=== PATIENT | male | born 1995 | race Caucasian/White ===

== ENCOUNTER → 2021-10-19 16:08 | Outpatient (CLI) | payer OTHER, SELFPAY ==
--- NOTE | ~2021-10-19 | XR_ITS ---
EXAM: XR foot RT min 3V HISTORY: M79.671 - Pain in right foot COMPARISON: None available FINDINGS: Normal mineralization. Minimally distracted transverse fracture of the fifth metatarsal ba se, 1.5 cm from the tip of the fifth metatarsal tuberosity, not involving the intermetatarsal joint l ine. No lytic or blastic lesion. Joint spaces maintained. No erosion or periosteal change. Soft tissu es within normal limits. IMPRESSION: Fifth metatarsal base avulsion fracture (pseudo-Griffith fracture).r Reviewed, dictated and finalized at location K. IMPRESSION: Fifth metatarsal base avulsion fracture (pseudo-Griffith fracture).saulo
== END ==
PROVIDERS: PCP Family Medicine; Visit Provider Physician Assistant
DX: S92.351A Displaced fracture of fifth metatarsal bone, right foot, initial encounter for closed fracture (principal); X58.XXXA Exposure to other specified factors, initial encounter
CPT/HCPCS: 73630

== ENCOUNTER 2022-04-29 01:44 | Day surgery (SDC) | payer BC, SELFPAY ==
[2022-04-16 14:28] VITALS: BMI 22.5
--- NOTE | 2022-04-28 14:32 | P.HP_ITS ---
History of Present Illness History of Present Illness Consent: Risks, benefits, and alternatives have been discussed and questions answered. Patient agrees to proceed with procedure. Chief complaint: abdominal pain, nausea Narrative: Cy Pettit is a 26 year old male who reports that since around 7 weeks ago he has been having a burning discomfort in his upper abdomen and points to his epigastric region that comes and goes.? It will get worse with alcohol and has cut back on that. He also says it can worsen with physical activity. ? He also reports intermittent nausea throughout the day that has been going on greater than 3 weeks-no vomiting.? Eating does not improve the symptoms or worsen. He denies any typical reflux symptoms.? Denies any dysphagia or odynophagia.? Denies any abnormal weight loss. About 12 years ago he had endoscopy and colonoscopy at [facility] in [place] to investigate diarrhea and those studies apparently were unremarkable. 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 [employer] Gender identity (if verbalized by the patient): Male Sexual Orientation (if Verbalized by the Patient): Straight or Heterosexual Spiritual care concerns: No Meds Home Medications and Allergies Home Medications Medication Instructions Recorded Confirmed Type eluxadoline 100 mg tablet (Viberzi) 100 mg PO BID #180 tabs 11/12/21 04/29/22 Rx omeprazole 40 mg capsule,delayed 40 mg PO DAILY #30 caps 03/23/22 04/29/22 Rx release loratadine 10 mg tablet (Claritin) 10 mg PO DAILY 04/16/22 04/29/22 History Allergies Allergy/AdvReac Type Severity Reaction Status Date / Time No Known Allergies Allergy Verified 04/29/22 08:12 Exam Const: General: alert Orientation/consciousness: patient oriented x3 Resp: Auscultation: clear to auscultation bilaterally Cardio: Rhythm: regular rhythm GI: GI Palp: Yes Soft to palpation and No Tenderness to palpation present (GI) Neuro: General: patient oriented x3 Assessment and Plan Assessment and plan (1) Epigastric pain: Code(s): R10.13 - Epigastric pain Status: Acute Assessment and Plan: EGD with possible biopsy or dilatation or cautery.
[2022-04-29 08:14] VITALS: BP 128/65; PULSE 70; RESP 16; TEMP 36; O2SAT 99; BMI 22.4
[2022-04-29] MEDS: LACTATED RINGERS 1,000 ML 150 ML IV CONT (08:21)
--- NOTE | 2022-04-29 08:32 | P.PNAN_ITS ---
Anes - Initial Pre Proc Eval Procedure: Operation Date: 04/29/22 09:15 Proposed Procedures p Esophagogastroduodenoscopy - Vincent Clemons MD Date/Time: 04/29/22 08:32 Surgeon: Vincent Clemons MD Pre Op Diagnosis: abdominal pain, nausea Patient Data Age: 26 Gender: M Height: 1.88 m Weight: 79.1 kg Last Vital Signs Temp 96.8 F L 04/29/22 08:14 Pulse 70 04/29/22 08:14 Resp 16 04/29/22 08:14 BP 128/65 04/29/22 08:14 Pulse Ox 99 04/29/22 08:14 O2 Del Method Room Air 04/29/22 08:14 Allergies Allergy/AdvReac Type Severity Reaction Status Date / Time No Known Allergies Allergy Verified 04/29/22 08:12 Home Medications Medication Instructions Recorded Confirmed Type eluxadoline 100 mg tablet (Viberzi) 100 mg PO BID #180 tabs 11/12/21 04/29/22 Rx omeprazole 40 mg capsule,delayed 40 mg PO DAILY #30 caps 03/23/22 04/29/22 Rx release loratadine 10 mg tablet (Claritin) 10 mg PO DAILY 04/16/22 04/29/22 History Patient hx anesthesia problems: none Family hx anesthesia problems: none Results Review: All pre-operative results and documents have been reviewed as part of the pre- operative evaluation. 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 [employer] Gender identity (if verbalized by the patient): Male Sexual Orientation (if Verbalized by the Patient): Straight or Heterosexual Spiritual care concerns: No Anes - Eval Final PreProcedure Day of Procedure 04/29/22 08:32 Patient weight: normal Heart: regular rate and rhythm Lungs: clear to auscultation Airway: Mallampati scale class II Neurological: alert and oriented Last oral intake: >/= 8 hours ASA classification: II Emergent: no Anesthetic plan: proceed Anesthesia type and monitoring: general GIVS and standard monitoring Results Review: All pre-operative results and documents have been reviewed as part of the pre- operative evaluation. Informed Consent: The patient's anesthetic plan and its attendant risks and benefits were discussed with the patient/family/POA. Questions were solicited and answers provided to the satisfaction of the patient/family/POA.
[2022-04-29 09:24] VITALS: BP 103/71; PULSE 78; RESP 20; O2SAT 100
[2022-04-29 09:34] VITALS: BP 114/69; PULSE 65; RESP 20; O2SAT 100
[2022-04-29 09:44] VITALS: BP 103/74; PULSE 64; RESP 22; O2SAT 100
== END 2022-04-29 09:59 | disposition home or self-care (01) ==
PROVIDERS: PCP Family Medicine; Visit Provider Internal Medicine Gastroenterology
PROC: 0DJ08ZZ Inspection of Upper Intestinal Tract, Via Natural or Artificial Opening Endoscopic (ICD-10-PCS; CPT 43235; principal; 2022-04-29 09:15)
DX: R10.13 Epigastric pain (principal); R11.0 Nausea; K21.9 Gastro-esophageal reflux disease without esophagitis; K58.0 Irritable bowel syndrome with diarrhea
CPT/HCPCS: 43239; 87081; J2704; J7120

== ENCOUNTER 2023-05-17 12:55 | Outpatient (CLI) | payer BC, SELFPAY | END 2023-05-17 12:56 | disposition home or self-care (01) | LOC: ANHAUDIO 12:55 | PROVIDERS: PCP Family Medicine; Visit Provider Otolaryngology | DX: H91.92 Unspecified hearing loss, left ear (principal) | CPT/HCPCS: 92557; 92567 ==

== ENCOUNTER 2023-08-31 08:00 | Outpatient (RCR) | payer BC, SELFPAY ==
--- NOTE | 2023-08-03 15:36 | OPREHPOC ---
Outpatient Therapy Plan of Care This is a Multidisciplinary Plan of Care that may contain components documented by all disciplines (PT, OT, and ST.) PT Problem 1 PT Problem #1 Knowledge Deficit PT Goal 1 Goal Pt to be IND with issued HEP Target Visit 4 PT Problem 2 PT Problem #2 Pain PT Goal 1 Goal Pt to report knee pain no greater than 3/10 in the last week. Target Visit 4 PT Goal 2 Goal Pt to report 75% improvement in overall symptoms. Target Visit 4 PT Problem 3 PT Problem #3 Impaired Functional Mobil PT Goal 1 Goal Pt to demonstrate a functional, weight squat without an increase in knee pain Target Visit 4 PT Goal 2 Goal Pt to be able to jog 1 mile without an increase in knee pain. Target Visit 4
--- NOTE | 2023-08-03 15:39 | PTOPEVAL1 ---
Assessment and note entered by Alberto Hugo, PT, DPT Evaluation Information Assessment Status Evaluation Diagnosis L knee pain Onset 6 months Subjective Information Pt reports L knee pain that has been going on for about 6 months, he declines a MASOUD. Pt declines any pain at rest, he states most of his pain is when he is doing LE focused workout with leg press, squats, and lunges. Pt reports pain at the superior and inferior pole of the patella. Reported Pain Level Pain Score 0: Self Report Assessment PT Clinical Summary Cy presents to therapy today for his initial evaluation with a diagnosis of L knee pain. Today he demonstrates decreased 2 joint hip flexor length L>R, decreased hamstring length damon, and decreases stability on his L side. Kinsiotape was applied to offload the quad tendon and gave some temporary relief. Skilled therapy services are indicated to address the strength/mobility imbalances, to improve knee stability, and to return to PLOF without limitations. Plan of Care Interventions Electrical Stimulation,Gait Training,Hot Pack/Cold Pack,Manual Therapy,Neuro Re-education,Patient/ Caregiver Educati,Therapeutic Activities, Therapeutic Exercise PT Services Indicated Yes Treatment Frequency and 1x/wk for 4 wks Duration These treatments will address the objective and functional deficits as defined above. The patient will be advanced safely and appropriately in order for the patient to progress towards his/her prior level of function. Additional exercises will be introduced and as well as a comprehensive home exercise program upon discharge, if needed, ?to ensure carryover of functional gains achieved in the clinic. This treatment plan has been reviewed and agreement upon by the patient.
--- NOTE | 2023-08-17 08:05 | PCPTNOTE ---
Patient canceled appointment this date due to work.
--- NOTE | 2023-08-24 09:03 | PCPTNOTE ---
Patient arrived at wrong appointment and could not stay at his orginal time due to work this date. Had to cancel appointment this date.
--- NOTE | 2023-08-31 08:55 | PTOPPROG ---
Assessment and note entered by Alberto Hugo, PT, DPT Evaluation Information Assessment Status Progress Diagnosis L knee pain Onset 6 months Subjective Information Pt states his knee is feeling pretty good today. He states he followed up with ortho and has an MRI scheduled for later this month. He reports no progress since completing therapy. He reports good compliance with his HEP. Assessment PT Clinical Summary Cy presents to therapy today for his progress report following 4 visits of skilled therapy to treat his diagnosis of L knee pain. Today he demonstrates improved quad length, improved knee stability, and improve body mechanics with functional squatting. He continues to have gritty soft tissue palpable around his L quad tendon and ITB. He plans to follow up after his MRI, he has not been scheduled for additional treatments at this time. Plan of Care Interventions Electrical Stimulation,Gait Training,Hot Pack/Cold Pack,Manual Therapy,Neuro Re-education,Patient/ Caregiver Educati,Therapeutic Activities, Therapeutic Exercise PT Services Indicated Yes Treatment Frequency and pending MRI results Duration These treatments will address the objective and functional deficits as defined above. The patient will be advanced safely and appropriately in order for the patient to progress towards his/her prior level of function. Additional exercises will be introduced and as well as a comprehensive home exercise program upon discharge, if needed, ?to ensure carryover of functional gains achieved in the clinic. This treatment plan has been reviewed and agreement upon by the patient.
--- NOTE | 2023-10-21 11:47 | PTOPDC ---
Assessment and note entered by Alberto Hugo, PT, DPT Evaluation Information Assessment Status Discharge - Pt Not Present Diagnosis L knee pain Onset 6 months Subjective Information Called and LVM for pt on 10/02/23 to follow up on knee progress and to see if he needs additional therapy. Have not heard from pt since. He will be discharged at this time per the attendance policy. Assessment PT Clinical Summary Cy completed 4 visits of skilled therapy from to 08/31/23. He will be discharged at this time.
== END 2023-10-21 14:06 | disposition home or self-care (01) ==
LOC: ANHGOSHPT 08:00
PROVIDERS: PCP Family Medicine; Visit Provider Nurse Practitioner Family
DX: M76.50 Patellar tendinitis, unspecified knee (principal); M76.899 Other specified enthesopathies of unspecified lower limb, excluding foot; M22.40 Chondromalacia patellae, unspecified knee
CPT/HCPCS: 97110; 97140; 97161; 97530

== ENCOUNTER → 2023-09-06 14:07 | Outpatient (CLI) | payer BC, SELFPAY ==
--- NOTE | ~2023-09-06 | MR_ITS ---
EXAMINATION: MR knee LT wo con DATE: 09/06/2023 14:41 INDICATION: Left knee pain. TECHNIQUE: Magnetic resonance imaging (MRI) of the left knee was performed without intravenous contra st. Sequences included axial PD-weighted FS FSE, coronal PD-weighted FSE and PD-weighted FS FSE, sagi ttal PD-weighted FSE, and sagittal T2-weighted FS FSE. COMPARISON: Left knee radiographs 08/02/2023 FINDINGS: Medial compartment: Medial meniscus is normal. Medial compartment cartilage is normal. Lateral compartment: Lateral meniscus is normal. Lateral compartment cartilage is normal. Patellofemoral compartment: Patellar cartilage is normal. Trochlear cartilage is normal. Ligaments and tendons: Anterior and posterior cruciate ligaments are normal. Medial collateral ligament and lateral collater al ligament complex are normal. The extensor mechanism is normal. Fluid: There is a small knee joint effusion. IMPRESSION: 1. Small knee joint effusion. Reviewed, dictated and finalized at location A. 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
== END ==
PROVIDERS: PCP Nurse Practitioner Family; Visit Provider Nurse Practitioner Family
DX: M25.462 Effusion, left knee (principal)
CPT/HCPCS: 73721

== ENCOUNTER 2024-06-06 10:53 | Outpatient (CLI) | payer BC, SELFPAY ==
--- NOTE | ~2024-06-06 | MR_ITS ---
EXAMINATION: MR ankle LT wo con DATE: 06/06/2024 11:28 INDICATION: Left ankle pain TECHNIQUE: Magnetic resonance imaging (MRI) of the left ankle was performed without intravenous contr ast. Sequences included sagittal, coronal, and axial proton-density weighted fast spin echo without a nd with fat saturation. COMPARISON: None. FINDINGS: Medial ankle ligaments: Deep and superficial deltoid ligaments as well as the spring ligament are normal. Lateral ankle ligaments: The anterior and posterior inferior tibiofibular ligaments are normal. The anterior talofibular, calc aneofibular and posterior talofibular ligaments are normal. Tendons: Achilles tendon is normal. The peroneus longus and brevis tendons are normal. There is a low-lying pe roneus brevis muscle belly with the distal margin of the myotendinous junction position with centimet ers below level of the distal tip of the fibula. The tibialis anterior and extensor hallucis longus a nd extensor digitorum longus tendons are normal. The tibialis posterior, flexor digitorum longus and flexor hallucis longus tendons are normal. Plantar fascia: Plantar aponeurosis is normal. Bones/other: Bone alignment is normal. A couple low signal intensity bone islands in the calcaneus and additional bone islands at the lateral malleolus and navicular. Marrow signal is otherwise normal with no reacti ve edema, fracture or pathologic marrow replacing process. Joint spaces are normal. Fluid: Physiologic amount fluid in the joint spaces. No bursitis or other abnormal fluid collections. IMPRESSION: 1. Low-lying peroneus brevis muscle belly which lies in close proximity to the marker indicating the region of pain. Otherwise unremarkable ankle MRI with no acute osseous abnormality normal ligaments a nd tendons. Reviewed, dictated and finalized at location A. 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 Low-lying peroneus brevis muscle belly which lies in close proximity to the marker indicating the region of pain. Otherwise unremarkable ankle MRI with no acute osseous abnormality normal ligaments and tendons.
== END 2024-06-06 10:54 | disposition home or self-care (01) ==
LOC: MICIMG 10:53
PROVIDERS: PCP Nurse Practitioner Family; Visit Provider Nurse Practitioner Family
DX: M62.89 Other specified disorders of muscle (principal)
CPT/HCPCS: 73721

== ENCOUNTER 2024-08-21 08:00 | Outpatient (RCR) | payer BC, SELFPAY ==
--- NOTE | 2024-06-06 10:28 | OPREHPOC ---
Outpatient Therapy Plan of Care This is a Multidisciplinary Plan of Care that may contain components documented by all disciplines (PT, OT, and ST.) PT Problem 1 PT Problem #1 Knowledge Deficit PT Goal 1 Goal / Goal Update 1. Pt to be IND with issued HEP Target Visit 10 PT Problem 2 PT Problem #2 Pain PT Goal 1 Goal / Goal Update 1. Pt to report no knee or ankle pain during static stance. 2. Pt to return to jogging without an increase in pain. Target Visit 10 PT Problem 3 PT Problem #3 Impaired Gait PT Goal 1 Goal / Goal Update 1. Pt to demonstrate no lateral trunk lean with ambulation on level ground. 2. Pt to demonstrate neutral hip alignment during ambulation. Target Visit 10
--- NOTE | 2024-06-06 10:29 | PTOPEVAL1 ---
Assessment and note entered by Alberto Hugo, PT, DPT Evaluation Information Assessment Status Evaluation Diagnosis L ankle pain ICD-10 Condition Codes (PT) M25.572 Subjective Information Pt reports L ankle pain that occurs when running or when standing for long periods of time. He reports no MASOUD. He has been seen recently for L knee pain that did not resolve. He states he broke his R foot a couple of years ago. He can still do all the exercises that he wants he just has a mild ache afterwards. He reports pain in the lateral ankle, behind the lateral malleolus. He has avoided running d/t ankle pain. Reported Pain Level Pain Score 1: Self Report Assessment PT Clinical Summary Pt presents to therapy today for his initial evaluation with a diagnosis of L ankle and L knee pain. Today he demonstrates normal ankle, knee, and hip ROM, has only mild lateral hip weakness, and also has good LE flexibility. During the supine to long sitting test pt demonstrates a leg length discrepancy, his RLE being longer than his LLE. He ambulates with an increased heel strike on the L, a L trunk lean, damon hip int rot during stance phase and a decreased arm swing on the R. Skilled therapy services are indicated to address the deficits noted above, to limit substitutions, and to return to daily activity without an increase in pain. Plan of Care Interventions Electrical Stimulation,Gait Training,Hot Pack/Cold Pack,Manual Therapy,Neuro Re-education,Patient/ Caregiver Educati,Therapeutic Activities, Therapeutic Exercise PT Services Indicated Yes Treatment Frequency and 2x/wk for 8 visits Duration These treatments will address the objective and functional deficits as defined above. The patient will be advanced safely and appropriately in order for the patient to progress towards his/her prior level of function. Additional exercises will be introduced and as well as a comprehensive home exercise program upon discharge, if needed, ?to ensure carryover of functional gains achieved in the clinic. This treatment plan has been reviewed and agreement upon by the patient.
--- NOTE | 2024-07-10 07:51 | PCPTNOTE ---
Patient called & cancelled scheduled appointment this date due to being ill. Has been rescheduled.
--- NOTE | 2024-07-27 08:19 | OPREHPOC ---
Outpatient Therapy Plan of Care This is a Multidisciplinary Plan of Care that may contain components documented by all disciplines (PT, OT, and ST.) PT Problem 1 PT Problem #1 Knowledge Deficit PT Goal 1 Goal / Goal Update 1. Pt to be IND with issued HEP Target Visit 10 Progress Met PT Problem 2 PT Problem #2 Pain PT Goal 1 Goal / Goal Update 1. Pt to report no knee or ankle pain during static stance. 2. Pt to return to jogging without an increase in pain. - Has not been able to return to jogging Target Visit 10 Progress Partially Met PT Problem 3 PT Problem #3 Impaired Gait PT Goal 1 Goal / Goal Update 1. Pt to demonstrate no lateral trunk lean with ambulation on level ground. 2. Pt to demonstrate neutral hip alignment during ambulation. Target Visit 10 PT Problem 4 PT Problem #4 Impaired Strength PT Goal 1 Goal / Goal Update Patient improve damon hip abduction strength to 4+/5 to improve ability with gait and single leg stance Target Visit 10
--- NOTE | 2024-07-27 08:19 | PTOPPROG ---
Assessment and note entered by Liborio Bey, PT Evaluation Information Assessment Status Progress Diagnosis L ankle pain ICD-10 Condition Codes (PT) Pain in left ankle and joints of left foot M25.572 Subjective Information Reports if he is doing squats or biking for too long he has knee pain. Pain is all superior and midline of patella at this time. Not currently running at all because that makes it directly worse. Feels he is coming along but is not quite where he wants to be yet. Assessment PT Clinical Summary Patient has seen improvement in ankle mobility and strength. With presence of jumper's knee syndrome it is evident that there is a level of hip weakness and instability that will benefit form continuation of addressment from skilled therapy at this time. Overall he has reflected compliance with skilled therapy at this point and will continue to benefit. Plan of Care Interventions Electrical Stimulation,Gait Training,Hot Pack/Cold Pack,Manual Therapy,Neuro Re-education,Patient/ Caregiver Education,Therapeutic Activities, Therapeutic Exercise PT Services Indicated Yes Treatment Frequency and 2x/wk for 8 visits Duration These treatments will address the objective and functional deficits as defined above. The patient will be advanced safely and appropriately in order for the patient to progress towards his/her prior level of function. Additional exercises will be introduced and as well as a comprehensive home exercise program upon discharge, if needed, ?to ensure carryover of functional gains achieved in the clinic. This treatment plan has been reviewed and agreement upon by the patient.
--- NOTE | 2024-08-21 09:07 | PTOPDC ---
Assessment and note entered by Liborio Bey, PT Evaluation Information Assessment Status Discharge Diagnosis L ankle pain ICD-10 Condition Codes (PT) Pain in left ankle and joints of left foot M25.572 Subjective Information Reports that overall he is still getting some soreness with jogging but the pain and discomfort is short lived and not nearly as intense as it used to be. Has been consistent with HEP for both flexibility and lateral strengthening. Feels comfortable with current HEP and plan to continue. Reported Pain Level Pain Score 0,0: Self Report Assessment PT Clinical Summary Patient has seen great improvement in ankle and hip mobility. Strength has progressed and he has a solid understanding of HEP to continue to address equilibrium and muscle balance. Patient is suitable for discharge to [facility] at this time. Plan of Care PT Services Indicated Yes
== END 2024-08-21 09:19 | disposition home or self-care (01) ==
LOC: ANHGOSHPT 08:00
PROVIDERS: PCP Nurse Practitioner Family; Visit Provider Nurse Practitioner Family
DX: M22.40 Chondromalacia patellae, unspecified knee (principal); M76.50 Patellar tendinitis, unspecified knee; M76.72 Peroneal tendinitis, left leg
CPT/HCPCS: 97110; 97116; 97140; 97161; 97530

== ENCOUNTER 2025-05-08 02:11 | Day surgery (SDC) | payer BC, SELFPAY ==
[2025-05-06 16:07] VITALS: BMI 24.5
[2025-05-08 10:49] VITALS: BP 113/77; PULSE 90; RESP 16; TEMP 36.1; O2SAT 99; BMI 23.8
[2025-05-08] MEDS: LACTATED RINGERS 1,000 ML 150 ML IV CONT (10:58)
[2025-05-08] MEDS: SIMETHICONE ORAL SUSPENSION 20 MG/0.3 ML 30 ML BOTTLE 1.8 ML PO (10:59)
--- NOTE | 2025-05-08 11:33 | P.HP_ITS ---
H&P: HPI History of Present Illness Date/Time: 05/08/25 11:33 Chief Complaint: Diarrhea-GERD Narrative: The patient is referred for EGD and colonoscopy. He has a longstanding history of IBS-diarrhea, well controlled on Viberzi, however over the past few weeks he has been experiencing diarrhea despite this medication, and had a positive response to rifaximin for 14 days. In addition, the patient has also a lo ngstanding history of heartburn having at least 4 episodes per week not associated with dysphagia. Review of Systems Review of Systems: All systems reviewed & are unremarkable except as noted in HPI and below PMFSH Past Medical History Medical History Osteochondral lesion of talar dome Left ankle pain Peroneal tendonitis of left lower extremity Runner's knee Quadriceps tendonitis Patellar tendonitis Left knee pain Decreased hearing of left ear Fracture of fifth metatarsal bone of right foot Eczema Rash Rash of both feet Allergic rhinitis Gastroesophageal reflux disease Irritable bowel syndrome with diarrhea Rectal mass Surgical History Surgical History History of appendectomy Social History Social History Social History: Caffeine-daily Smoking status: Never smoker Second hand tobacco smoke exposure: No Alcohol intake: current Drinks per week: 8 Substance use: never Substance use type: does not use Lack of Transportation: No Lack of Food: Never True Current Housing: I Have Housing Concerned About Future Housing: No Difficulty Paying Gas/Electric Bills: No Difficulty Paying for Meds: No Currently Unemployed: No Education: Bachelor's Degree Difficulty w/ Childcare or Family Care: No Living arrangements: with family Occupation/Education: occupation 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 Route 04/09/25 05/08/25 Rx release .COMPLEX #90 caps hyoscyamine sulfate 0.125 mg tablet See Rx Instruction s .Route 04/10/25 05/06/25 Rx .COMPLEX #360 tabs famotidine 40 mg tablet 40 mg PO QHS #30 tabs 05/08/25 Rx rifaximin 550 mg tablet (Xifaxan) 550 mg PO TID 14 day s #42 tabs 04/25/25 05/08/25 Rx dicyclomine 20 mg tablet 20 mg PO .every 6 hours PRN #120 04/30/25 05/06/25 Rx tabs ondansetron 4 mg disintegrating 4 mg PO Q6H PRN nausea and vomiting 05/06/25 05/06/25 History tablet Allergies Allergy/AdvReac Type Severity Reaction Status Date / Time No Known Allergies Allergy Verified 05/08/25 10:48 Vital Signs Vital Signs - 24 hr 05/08/25 10:49 Temperature 97 F L Pulse Rate 90 Respiratory Rate 16 Blood Pressure 113/77 Pulse Oximetry 99 Oxygen Delivery Room Air Exam Const: General: cooperative and healthy appearing Resp: Effort & Inspection: normal respiratory effort and able to speak in complete sentences Auscultation: clear to auscultation bilaterally Cardio: Rate: regular rate Rhythm: regular rhythm GI: Inspection: normal to inspection GI Palp: No No hepatosplenomegaly present Auscultation: normal bowel sounds Rectal Exam: deferred Skin: General skin exam: normal color Psych: Appearance: grossly normal Mental Status: mental status grossly normal Assessment and Plan Assessment and plan (1) Irritable bowel syndrome with diarrhea: Code(s): K58.0 - Irritable bowel syndrome with diarrhea Status: Acute Assessment and Plan: The patient is deemed a good candidate for the procedures. Consent signed. Wi ll proceed. (2) Gastroesophageal reflux disease: Code(s): K21.9 - Gastro-esophageal reflux disease without esophagitis Status: Acute
--- NOTE | 2025-05-08 12:05 | WPDANESEPPF ---
Anes - Initial Pre Proc Eval Procedure: Operation Date: 05/08/25 12:45 Proposed Procedures p EGD & Diagnostic Colonoscopy - Roger Cano MD Date/Time: 05/08/25 12:05 Surgeon: Roger Cano MD Pre Op Diagnosis: GERD,change bowel habits,fecal urgency Patient Data Age: 29 Gender: M Height: 1.88 m Weight: 84 kg Last Vital Signs Temp 97 F L 05/08/25 10:49 Pulse 90 05/08/25 10:49 Resp 16 05/08/25 10:49 BP 113/77 05/08/25 10:49 Pulse Ox 99 05/08/25 10:49 O2 Del Method Room Air 05/08/25 10:49 Allergies Allergy/AdvReac Type Severity Reaction Status Date / Time No Known Allergies Allergy Verified 05/08/25 10:48 Home Medications ?Medication ?Instructions ?Recorded ?Confirmed ?Type azelastine 137 mcg (0.1 %) nasal 137 mcg (0.137 mL) intranasal Q12H 10/17/24 05/06/25 Rx spray #30 mL eluxadoline 100 mg tablet (Viberzi) 100 mg PO BID #180 tabs 03/19/25 05/08/25 Rx omeprazole 20 mg capsule,delayed See Rx Instructions .Route 04/09/25 05/08/25 Rx release .COMPLEX #90 caps hyoscyamine sulfate 0.125 mg tablet See Rx Instructions .Route 04/10/25 05/06/25 Rx .COMPLEX #360 tabs famotidine 40 mg tablet 40 mg PO QHS #30 tabs 04/25/25 05/08/25 Rx rifaximin 550 mg tablet (Xifaxan) 550 mg PO TID 14 days #42 tabs 04/25/25 05/08/25 Rx dicyclomine 20 mg tablet 20 mg PO .every 6 hours PRN #120 04/30/25 05/06/25 Rx tabs ondansetron 4 mg disintegrating 4 mg PO Q6H PRN nausea and vomiting 05/06/25 05/06/25 History tablet Patient hx anesthesia problems: none Family hx anesthesia problems: none Results Review: All pre-operative results and documents have been reviewed as part of the pre-operative evaluation. [facility] Past Medical History Medical History Osteochondral lesion of talar dome Left ankle pain Peroneal tendonitis of left lower extremity Runner's knee Quadriceps tendonitis Patellar tendonitis Left knee pain Decreased hearing of left ear Fracture of fifth metatarsal bone of right foot Eczema Rash Rash of both feet Allergic rhinitis Gastroesophageal reflux disease Irritable bowel syndrome with diarrhea Rectal mass Surgical History Surgical History History of appendectomy Social History Social History Social History: Caffeine-daily Smoking status: Never smoker Second hand tobacco smoke exposure: No Alcohol intake: current Drinks per week: 8 Substance use: never Substance use type: does not use Lack of Transportation: No Lack of Food: Never True Current Housing: I Have Housing Concerned About Future Housing: No Difficulty Paying Gas/Electric Bills: No Difficulty Paying for Meds: No Currently Unemployed: No Education: Bachelor's Degree Difficulty w/ Childcare or Family Care: No Living arrangements: with family Occupation/Education: occupation 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 [employer] Gender identity (if verbalized by the patient): Male Sexual Orientation (if Verbalized by the Patient): Straight or Heterosexual Spiritual care concerns: No Anes - Eval Final PreProcedure Day of Procedure 05/08/25 12:05 Patient weight: normal and thin Lungs: normal air movement Airway: Mallampati scale class II Neurological: alert and oriented Last oral intake: >/= 8 hours ASA classification: I Emergent: no Anesthetic plan: proceed Anesthesia type and monitoring: general and standard monitoring Results Review: All pre-operative results and documents have been reviewed as part of the pre-operative evaluation. Active, healthy, no cp or sob w 1-2 fos. Pt w abd pain, change in bowel habits. Informed Consent: The patient's anesthetic plan and its attendant risks and benefits were discussed with the patient/family/POA. Questions were solicited and answers provided to the satisfaction of the patient/family/POA.
--- NOTE | 2025-05-08 12:29 | SUR.OPER ---
EGD: start 12:18, end 12:22 Colonoscopy: start 12:28, end 12:41
--- NOTE | 2025-05-08 12:34 | S_PTH ---
PATIENT: Cy Pettit LOC: [facility]#:[id number] AGE/SX: 29/M ROOM: RE05/08/[address]: Roger Cano MD : 1995 BED: DIS: 05/08/2025 SPEC #: [id number] RECD: 05/08/25 13:24 STATUS: JEFF REQ #: [id number] ROLANDO: 05/08/25 12:[address]: Roger Cano DEPT: [facility] Surgical RECD BY: Monique Abernathy ENTERED: 05/08/25 13:24 SP TYPE: Surgical OTHR DR: Slava Avilez MD Tissues: A - Gastric Biopsy B - Gastric Biopsy C - Colon Biopsy D - Colon Biopsy Procedures: Hematoxylin and Eosin Stain Gross and Microscopic Level 4
[2025-05-08] MEDS: SIMETHICONE ORAL SUSPENSION 20 MG/0.3 ML 30 ML BOTTLE 0.6 ML IRRIGATION (12:35)
[2025-05-08 12:46] VITALS: BP 100/63; PULSE 74; RESP 18; O2SAT 100
[2025-05-08 12:56] VITALS: BP 92/62; PULSE 66; RESP 18; O2SAT 100
[2025-05-08 13:06] VITALS: BP 101/68; PULSE 63; RESP 18; O2SAT 100
== END 2025-05-08 13:17 | disposition home or self-care (01) ==
PROVIDERS: PCP Family Medicine; Referring Provider Nurse Practitioner; Visit Provider Internal Medicine Gastroenterology
PROC: 0DJ08ZZ Inspection of Upper Intestinal Tract, Via Natural or Artificial Opening Endoscopic (ICD-10-PCS; CPT 45378; principal; 2025-05-08 12:45)
DX: K58.0 Irritable bowel syndrome with diarrhea (principal); K21.9 Gastro-esophageal reflux disease without esophagitis; L30.9 Dermatitis, unspecified; J30.9 Allergic rhinitis, unspecified; Z98.890 Other specified postprocedural states
CPT/HCPCS: 43239; 45380; 88305; J2003; J2704; J7120